=== PATIENT | female | born 1990 ===

== ENCOUNTER 2016-06-29 16:56 | Emergency (ER) | payer SELFPAY ==
[2016-06-29 17:05] VITALS: BP 109/72; PULSE 67; RESP 16; TEMP 98.5; O2SAT 98
--- NOTE | 2016-06-29 18:32 | C.PDOC ---
History Of Present Illness A 26 year old female presents to the emergency room with complaints of left sided upper back pain that started yesterday. Patient notes that she vomited yesterday and felt like rice came out of her nose and ears. Patient is now concerned that rice is in her back. Patient notes that pain is worst with movement. Patient denies shortness of breath, fever, abdominal pain, vomiting today, , leg swelling, or any other complaints. 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) Onset/Duration Of Symptoms: Days (1) Current Symptoms Are (Timing): Still Present Quality Of Discomfort: "Pain" Severity: Mild Associated Symptoms: denies: Incontinence, New Weakness, New Numbness Recent travel outside of the [place]: No Past Medical History Reviewed: Historical Data, Nursing Documentation, Vital Signs Vital Signs: Last Vital Signs Temp 98.5 F 06/29/16 17:02 Pulse 67 06/29/16 17:02 Resp 16 06/29/16 17:02 BP 109/72 06/29/16 17:02 Pulse Ox 98 06/29/16 19:03 Surgical History: Cholecystectomy Family History: States: No Known Family Hx - Social History Hx Alcohol Use: No Hx Substance Use: No - Immunization History Hx Tetanus Toxoid Vaccination: No Hx Influenza Vaccination: No Hx Pneumococcal Vaccination: No Review Of Systems Except As Marked, All Systems Reviewed And Found Negative. Constitutional: Negative for: Fever, Chills Respiratory: Negative for: Shortness of Breath Gastrointestinal: Positive for: Vomiting. Negative for: Nausea, Abdominal Pain , Diarrhea Musculoskeletal: Positive for: Back Pain (Right upper back pain). Negative for : Other (Leg swelling) Physical Exam - Physical Exam Appears: Well, Non-toxic, No Acute Distress, Other (No difficulty breathing, laying down flat.) Skin: Normal Color, Warm, Dry, No Rash Head: Atraumatic, Normacephalic Eye(s): bilateral: Normal Inspection, EOMI Ear(s): Bilateral: Normal Nose: Normal, No Discharge, No Epistaxis, No Deformity, No Tenderness Oral Mucosa: Moist Throat: Normal, No Erythema, No Exudate Neck: Normal ROM, No Midline Cervical Tenderness, No Paracervical Tenderness, Supple ((-) meningus) Chest: Symmetrical, No Deformity, No Tenderness Cardiovascular: Rhythm Regular Respiratory: Normal Breath Sounds, No Rales, No Rhonchi, No Wheezing Gastrointestinal/Abdominal: Soft, No Tenderness, No Distention, No Guarding, No Rebound Back: No CVA Tenderness, No Vertebral Tenderness, Other (Left sided upper back tenderness) Extremity: Normal ROM, No Tenderness Neurological/Psych: Oriented x3, Normal Speech, Normal Cognition, Normal Motor, Normal Sensation Gait: Steady ED Course And Treatment O2 Sat by Pulse Oximetry: 98 - Radiology CXR: Interpreted by Me, Viewed By Me CXR Interpretation: Yes: No Acute Disease Progress Note: Patient given Motrin. On reassessment, patient is resting comfortably, with improvement of back pain. Patient remains afebrile, with no bony tenderness, extremity numbness or weakness, or abdominal pain. Patient is ambulatory in the emergency department with no signs of discomfort. Discussed signs of concern. Patient was advised to follow up with physician/clinic in 1-2 days Disposition - Disposition Disposition: HOME/ ROUTINE Disposition Time: 18:30 Condition: STABLE Additional Instructions: Return to ER if symptoms persist or worsen including difficulty breathing or chest pain. Follow up with your doctor in 1-2 days. Regrese al ER si los sntomas persisten o empeoran incluyendo dificultad para respirar o dolor en el pecho. Seguimiento con wilson mdico en 1-2 rodriguez. Prescriptions: Ibuprofen [Motrin] 600 mg PO Q6 PRN #20 tab PRN Reason: Pain, Mild (1-3) Instructions: Back Pain (ED) Print Language: DOMINICAN - Clinical Impression Clinical Impression: Back pain - Scribe Statement The provider has reviewed the documentation as recorded by the Shonibcolette Gr Provider Scribe Attestation: All medical record entries made by the Scribe were at my direction and personally dictated by me. I have reviewed the chart and agree that the record accurately reflects my personal performance of the history, physical exam, medical decision making, and the department course for this patient. I have also personally directed, reviewed, and agree with the discharge instructions and disposition.
--- NOTE | 2016-06-29 18:33 | RAD ---
HISTORY: pain COMPARISON: None available. TECHNIQUE: Chest PA and lateral FINDINGS: LUNGS: No focal consolidation. Please note that chest x-ray has limited sensitivity for the detection of pulmonary masses. PLEURA: No significant pleural effusion identified. No definite pneumothorax . CARDIOVASCULAR: The cardiomediastinal silhouette appears within normal limits of size. OSSEOUS STRUCTURES: No acute osseous abnormality identified. VISUALIZED UPPER ABDOMEN: Cholecystectomy clips. OTHER FINDINGS: None. IMPRESSION: No focal consolidation, significant pleural effusion, or definite pneumothorax identified.
== END 2016-06-29 18:35 | disposition home or self-care (01) ==
LOC: C.ER 16:56
DX: M54.6 Pain in thoracic spine (principal)

== ENCOUNTER 2016-08-01 02:41 | Emergency (ER) | payer SELFPAY ==
[2016-08-01 03:00] VITALS: RESP 20; TEMP 98.9; O2SAT 100
--- NOTE | 2016-08-01 04:21 | C.PDOC ---
History Of Present Illness pt with sudden onset of anxiety about 30-40 min ago. Pt hyperventilating, Has carpo-pedal spasms. Difficult to obtain history. Denies suicidal or homicidal ideation Time Seen by Provider: 08/01/16 04:20 Chief Complaint (Nursing): Anxiety History Per: Family History/Exam Limitations: no limitations Onset/Duration Of Symptoms: Hrs Current Symptoms Are (Timing): Still Present Suicide/Self Injury Attempted (Context): Other Modifying Factor(s): None Severity: None Pain Scale Rating Of: 0 Associated Symptoms: Anxiety Involuntary Hold By: None Recent travel outside of the [place]: No Additional History Per: Family Past Medical History Reviewed: Historical Data, Nursing Documentation, Vital Signs Vital Signs: Last Vital Signs Temp 98.9 F 08/01/16 02:56 Pulse 101 H 08/01/16 02:56 Resp 20 08/01/16 02:56 BP 120/81 08/01/16 02:56 Pulse Ox 100 08/01/16 04:29 Surgical History: Cholecystectomy Family History: States: No Known Family Hx - Social History Hx Alcohol Use: No Hx Substance Use: No - Immunization History Hx Tetanus Toxoid Vaccination: No Hx Influenza Vaccination: No Hx Pneumococcal Vaccination: No Review Of Systems Constitutional: Negative for: Fever, Chills Eyes: Negative for: Vision Change ENT: Negative for: Throat Pain Cardiovascular: Negative for: Chest Pain Respiratory: Negative for: Shortness of Breath Gastrointestinal: Negative for: Nausea, Vomiting, Abdominal Pain Musculoskeletal: Negative for: Back Pain Skin: Negative for: Rash Neurological: Negative for: Weakness Psych: Positive for: Anxiety Physical Exam - Physical Exam Appears: Non-toxic Skin: Warm, Dry Head: Normacephalic Eye(s): bilateral: Normal Inspection, PERRL, EOMI Nose: Flaring Oral Mucosa: Dry Tongue: Normal Appearing Throat: No Erythema Neck: Trachea Midline, Supple Chest: Symmetrical Cardiovascular: Rhythm Regular Respiratory: No Rales, No Rhonchi, No Wheezing Gastrointestinal/Abdominal: Soft, No Tenderness Back: Normal Inspection Extremity: Other (carpo-pedal spasms) Extremity: Bilateral: Atraumatic, Normal Color And Temperature Neurological/Psych: Other (very anxious, hyperventilating) Gait: Steady ED Course And Treatment O2 Sat by Pulse Oximetry: 100 Pulse Ox Interpretation: Normal Reevaluation Time: 06:06 Reassessment Condition: Improved Disposition Counseled Patient/Family Regarding: Studies Performed, Diagnosis, Need For Followup, Rx Given - Disposition Referrals: [facility] [Outside] Disposition: HOME/ ROUTINE Disposition Time: 04:21 Condition: FAIR Instructions: Anxiety (ED), Hyperventilation (ED) Print Language: MAORI - Clinical Impression Clinical Impression: Anxiety, Hyperventilating
[2016-08-01 06:16] VITALS: BP 121/70; PULSE 78
== END 2016-08-01 06:30 | disposition home or self-care (01) ==
LOC: C.ER 02:41
DX: F41.9 Anxiety disorder, unspecified (principal); R06.4 Hyperventilation